=== PATIENT | female | born 1990 | race Caucasian/White ===

== ENCOUNTER 2019-10-11 08:01 | Outpatient (CLI) | payer MEDICAID, SELFPAY ==
[2019-10-14 23:31] LABS: SARS-CoV-2 RNA Undetected (Undetected); SARS-CoV-2 Specimen Source Nasopharynx
== END 2019-10-11 08:21 ==
PROVIDERS: PCP Physician Assistant Medical; Visit Provider Nurse Practitioner Family
DX: Z11.59 Encounter for screening for other viral diseases (principal)
CPT/HCPCS: U0003

== ENCOUNTER 2019-12-13 11:45 | Outpatient (CLI) | payer MEDICAID, SELFPAY ==
[2019-12-15 07:28] LABS: Patient Race White; SARS-CoV-2 RNA Undetected (Undetected); SARS-CoV-2 Specimen Source Nasopharynx
== END 2019-12-13 12:05 ==
PROVIDERS: PCP Physician Assistant Medical; Visit Provider Family Medicine
DX: Z11.59 Encounter for screening for other viral diseases (principal)
CPT/HCPCS: U0003

== ENCOUNTER 2021-05-11 10:28 | Outpatient (CLI) | payer OTHER, SELFPAY ==
[2021-05-12 01:13] LABS: COVID-19 RT-PCR UVMMC Result Negative (Negative)
== END 2021-05-11 10:29 | disposition home or self-care (01) ==
PROVIDERS: Family Medicine; PCP Physician Assistant Medical; Visit Provider Obstetrics & Gynecology Gynecology
DX: Z20.822 Contact with and (suspected) exposure to COVID-19 (principal)
CPT/HCPCS: U0003

== ENCOUNTER 2021-10-04 16:07 | Outpatient (REF) | payer OTHER, SELFPAY ==
[2021-10-04 12:06] LABS: Source Nasal/Nares
[2021-10-04 16:04] LABS: COVID-19 PCR POSITIVE (Negative)
== END 2021-10-04 16:08 | disposition home or self-care (01) ==
LOC: LBN 16:07
PROVIDERS: PCP Physician Assistant Medical; Visit Provider Family Medicine
DX: Z20.822 Contact with and (suspected) exposure to COVID-19 (principal)
CPT/HCPCS: 87635

== ENCOUNTER 2023-02-24 15:56 | Outpatient (REF) | payer MEDICAID, SELFPAY ==
--- NOTE | 2023-02-24 15:30 | PAPFT_PTH ---
PATIENT: Anna Davalos LOC: N U#:[id number] AGE/SX: 32/F ROOM: RE02/24/[address]: Aria Jimenez : 1990 BED: DIS: 02/24/2023 SPEC #: [id number] RECD: 02/24/23 17:41 STATUS: ELLEN REShelia #: [id number] MARV: 02/24/23 15:[address]: Aria Jimenez DEPT: [facility] Cytology RECD BY: Martine Reyes ENTERED: 02/24/23 17:42 SP TYPE: PAPFT OTHR DR: Hayley Dia Tissues: 1 - CX/ENDOCX FOR PAP SMEARS Procedures: PAP THIN PREP/[facility] Screening HPV DNA PROBE Comments:
[2023-02-26 15:11] LABS: Chlamydia Result Negative (Negative); GC Result Negative (Negative)
== END 2023-02-24 15:57 | disposition home or self-care (01) ==
LOC: LBN 15:56
PROVIDERS: PCP Physician Assistant Medical; Visit Provider Obstetrics & Gynecology Gynecology
DX: Z11.3 Encounter for screening for infections with a predominantly sexual mode of transmission (principal); Z12.4 Encounter for screening for malignant neoplasm of cervix
CPT/HCPCS: 87491; 87591; 88142; 87624

== ENCOUNTER 2023-03-31 16:19 | Outpatient (REF) | payer MEDICAID, SELFPAY ==
[2023-04-03 13:15] LABS: Chlamydia Result Negative (Negative); GC Result Negative (Negative)
== END 2023-03-31 16:20 | disposition home or self-care (01) ==
LOC: LBN 16:19
PROVIDERS: PCP Physician Assistant Medical; Visit Provider Obstetrics & Gynecology
DX: Z11.3 Encounter for screening for infections with a predominantly sexual mode of transmission (principal)
CPT/HCPCS: 87491; 87591